=== PATIENT | male | born 1965 | race Two or more races ===

== ENCOUNTER 2022-09-14 09:23 | Emergency (ER) | payer MEDICAID, OTHER ==
[~2022-09-14] VITALS: Ht 188 cm; Wt 118.0 kg
[2022-09-14] MEDS ORDERED: DEXTROSE 10% 250 ML IV ONE (09:30)
[2022-09-14] MEDS ORDERED: NOREPINEPHRINE 8 MG/250ML KIT 250 ML IV ONE (09:43)
[2022-09-14] MEDS ORDERED: PANTOPRAZOLE 40mg/50ML NS AE 50 ML IV ONE (09:45)
[2022-09-14] MEDS ORDERED: OCTREOTIDE ACETATE 500 MCG in SODIUM CHL 0.9% 99 ML IV SCH (09:45)
[2022-09-14] MEDS ORDERED: NOREPINEPHRINE 8 MG/250ML KIT 250 ML IV SCH (10:00)
[2022-09-14 10:13] VITALS: BP 99/77
[2022-09-14 10:22] LABS: Albumin 1.5 g/dL (3.4-5.0); BUN/Creatinine Ratio 13.1 (10.0-20.0); Bilirubin, Total 1.6 mg/dL (0.2-1.0); Calcium 8.5 mg/dL (8.5-10.1); Total Protein 4.5 g/dL (6.4-8.2)
[2022-09-14 10:26] LABS: Hematocrit 23.6 % (41.0-53.0); Hemoglobin 7.3 g/dL (13.5-17.5); Mean Corpuscular Hemoglobin 37.2 pg (28.0-32.0); Mean Corpuscular Volume 119.8 fL (80.0-100.0); Red Blood Cells 1.97 10^6/uL (4.5-5.90)
[2022-09-14 10:41] LABS: Potassium 6.7 mmol/L (3.5-5.1)
[2022-09-14 11:05] LABS: Red Cell Distribution Width 22.7 % (11.8-14.3)
[2022-09-14 11:06] LABS: Basophils % (manual) 0 (0.0-2.0); Blast Cells 0; Eosinophils % (manual) 0 (0-7); Metamyelocytes % 0; Promyelocytes % 0; Reactive Lymphocytes 0
[2022-09-14 11:53] LABS: Band Neutrophils % (manual) 8; Lymphocytes % (manual) 45 (10.0-50.0); Monocytes % (manual) 17 (0-12); Myelocytes % 4
== END 2022-09-14 10:20 ==
LOC: ER 09:23 → EDBD 09:23 → ER 10:20
DX: I46.9 Cardiac arrest, cause unspecified (principal); K74.60 Unspecified cirrhosis of liver; R41.82 Altered mental status, unspecified; R06.89 Other abnormalities of breathing; I10 Essential (primary) hypertension
CPT/HCPCS: 31500; 36415; 36430; 36556; 76942; 80053; 85007; 85027; 86850; 86900; 86901; 86920; 92950; 93005; 99291; C1729; P9016; 94002